=== PATIENT | male | born 1955 | race Caucasian/White ===

== ENCOUNTER 2017-04-11 20:19 | Emergency (ER) | payer OTHER ==
[~2017-04-11] VITALS: Ht 172.7 cm; Wt 121.0 kg
[~2017-04-11 20:19] MED LIST: IBUP800T23 PO; ORPH100T PO; SIMV10 PO; ZOLP10TA3 PO
[2017-04-11 20:26] VITALS: BP 174/89; PULSE 80; RESP 18; TEMP 98.4; O2SAT 99
--- NOTE | 2017-04-11 21:32 | PD ---
HPI Chief Complaint: Psychiatric Symptoms Time Seen by Provider: 21:31 Travel History International Travel<30 days: No Contact w/Intl Traveler<30days: No Traveled to known affect area: No History of Present Illness HPI 61-year-old male presents to the emergency department under Mcguire act for psychiatric evaluation. Patient states that he is getting a divorce after 30+ years and has been having a difficult time dealing with it. He was angry this evening and said "things that he didn't mean." Patient did state that he made suicidal threats did not meet any of this. He states it was "leaking at the moment." Patient denies any psychiatric history. Denies any illegal drug use. Occasional alcohol use. He has no other symptoms to report this time. [facility] Past Medical History Medical History: Denies Significant Hx High Cholesterol: Yes Diminished Hearing: No Past Surgical History Cholecystectomy: Yes Social History Alcohol Use: Yes (OCCU) Tobacco Use: No Substance Use: No Allergies-Medications (Allergen,Severity, Reaction): Coded Allergies: shellfish derived (Unverified Allergy, Unknown, Anaphylaxis, 03/29/17) Reported Meds & Prescriptions Reported Meds & Active Scripts Active Reported Omeprazole 40 Mg Cap 40 Mg PO DAILY Zolpidem (Zolpidem Tartrate) 10 Mg Tab 10 Mg PO HS PRN Review of Systems Except as stated in HPI: all other systems reviewed are Neg Physical Exam Narrative GENERAL: Well-nourished male patient, and no acute distress. SKIN: Focused skin assessment warm/dry. HEAD: Atraumatic. Normocephalic. EYES: Pupils equal and round. No scleral icterus. No injection or drainage. ENT: No nasal bleeding or discharge. Mucous membranes pink and moist. NECK: Trachea midline. No JVD. CARDIOVASCULAR: Regular rate and rhythm. No murmur appreciated. RESPIRATORY: No accessory muscle use. Clear to auscultation. Breath sounds equal bilaterally. GASTROINTESTINAL: Abdomen soft, non-tender, nondistended. Hepatic and splenic margins not palpable. MUSCULOSKELETAL: No obvious deformities. No clubbing. No cyanosis. No edema. NEUROLOGICAL: Awake and alert. No obvious cranial nerve deficits. Motor grossly within normal limits. Normal speech. Data Data Last Documented VS Vital Signs Date Time Temp Pulse Resp B/P (MAP) Pulse Ox O2 Delivery O2 Flow Rate FiO2 04/11/17 20:26 98.4 80 18 174/89 (117) 99 Orders Orders Complete Blood Count With Diff (04/11/17 21:19) Basic Metabolic Panel (Bmp) (04/11/17 21:19) Psych Screen (04/11/17 21:19) Drug Screen, Random Urine (04/11/17 21:19) Alcohol (Ethanol) (04/11/17 21:19) Labs Laboratory Tests Test 04/11/17 20:47 04/11/17 22:05 White Blood Count 6.4 TH/MM3 Red Blood Count 4.87 MIL/MM3 Hemoglobin 14.5 GM/DL Hematocrit 44.1 % Mean Corpuscular Volume 90.5 FL Mean Corpuscular Hemoglobin 29.7 PG Mean Corpuscular Hemoglobin Concent 32.8 % Red Cell Distribution Width 14.0 % Platelet Count 290 TH/MM3 Mean Platelet Volume 7.0 FL Neutrophils (%) (Auto) 61.5 % Lymphocytes (%) (Auto) 26.9 % Monocytes (%) (Auto) 9.4 % Eosinophils (%) (Auto) 1.6 % Basophils (%) (Auto) 0.6 % Neutrophils # (Auto) 3.9 TH/MM3 Lymphocytes # (Auto) 1.7 TH/MM3 Monocytes # (Auto) 0.6 TH/MM3 Eosinophils # (Auto) 0.1 TH/MM3 Basophils # (Auto) 0.0 TH/MM3 CBC Comment DIFF FINAL Differential Comment Blood Urea Nitrogen 9 MG/DL Creatinine 0.73 MG/DL Random Glucose 75 MG/DL Calcium Level 9.0 MG/DL Sodium Level 138 MEQ/L Potassium Level 3.7 MEQ/L Chloride Level 102 MEQ/L Carbon Dioxide Level 24.8 MEQ/L Anion Gap 11 MEQ/L Estimat Glomerular Filtration Rate 110 ML/MIN Ethyl Alcohol Level LESS THAN 3 MG/DL Urine Opiates Screen NEG Urine Barbiturates Screen NEG Urine Amphetamines Screen NEG Urine Benzodiazepines Screen NEG Urine Cocaine Screen NEG Urine Cannabinoids Screen NEG MDM Medical Decision Making Medical Screen Exam Complete: Yes Emergency Medical Condition: Yes Medical Record Reviewed: Yes Differential Diagnosis Mood disorder versus personality disorder versus adjustment reaction disorder Narrative Course 61 year-old male presents to emergency department for evaluation under a Mcguire act. Patient appears well and without distress. Vital signs are stable. Laboratory is without acute concern. Patient is medically cleared to undergo psychiatric screening for further evaluation and disposition. Mental health screening discussed with the patient. Psychiatric screen ordered. Diagnosis Primary Impression: Adjustment reaction Qualified Codes: F43.25 - Adjustment disorder with mixed disturbance of emotions and conduct Condition: Stable Barbara Mccauley Apr 11, 2017 21:32
[2017-04-11 21:52] LABS: AUTOMATED NEUTROPHIL # 3.9 TH/MM3 (1.8-7.7); BASOPHIL % 0.6 % (0.0-2.0); EOSINOPHIL # 0.1 TH/MM3 (0-0.4); EOSINOPHIL % 1.6 % (0.0-4.0); HEMATOCRIT 44.1 % (39.0-51.0); HEMO FLAGS DIFF FINAL; LYMPH % 26.9 % (9.0-44.0); LYMPHOCYTE # 1.7 TH/MM3 (1.0-4.8); MEAN CELL VOLUME 90.5 FL (80.0-100.0); MEAN CORPUSCULAR HEMOGLOBIN 29.7 PG (27.0-34.0); MEAN CORPUSCULAR HGB CONC 32.8 % (32.0-36.0); MONO % 9.4 % (0.0-8.0); NEUT % 61.5 % (16.0-70.0); PLATELET COUNT 290 TH/MM3 (150-450); RED BLOOD COUNT 4.87 MIL/MM3 (4.50-5.90); WHITE BLOOD COUNT 6.4 TH/MM3 (4.0-11.0)
[2017-04-11 22:13] LABS: ANION GAP 11 MEQ/L (5-15); BICARBONATE 24.8 MEQ/L (21.0-32.0); BLOOD UREA NITROGEN 9 MG/DL (7-18); CHLORIDE 102 MEQ/L (98-107); GLOMERULAR FILTRATION RATE 110 ML/MIN (>89); POTASSIUM 3.7 MEQ/L (3.5-5.1); SODIUM (NA) 138 MEQ/L (136-145)
[2017-04-11 22:19] LABS: ALCOHOL LESS THAN 3 MG/DL (0-5)
[2017-04-11] MEDS ORDERED: OMEP40CA2 PO (23:21)
[2017-04-11] MEDS ORDERED: ZOLP10TA3 PO (23:21)
[2017-04-12 06:00] VITALS: BP 159/81; PULSE 72; RESP 18; O2SAT 98
[2017-04-12 08:22] VITALS: BP 146/78; PULSE 74; RESP 18; O2SAT 96
--- NOTE | 2017-04-12 09:46 | PD ---
History of Present Illness Chief Complaint: Psychiatric Symptoms Time Seen by Provider: 09:35 Travel History International Travel<30 Days: No Contact w/Intl Traveler<30days: No Known affected area: No Legal Status Legal Status: Mcguire Act Mcguire Act Signed By: Carlos Irwin History of Present Illness: History of Present Illness HPI 61-year-old male with no previous psychiatric history who presents to the emergency department under Mcguire act for psychiatric evaluation. The BA report alleges that " he left a note for his stating that he was going to harm himself" Patient states that he is getting a divorce after 30+ years and has been having a difficult time dealing with it. He was involved in an argument with his and feeling angry and said "things that he didn't mean." Patient did state that he made suicidal threats did not meet any of this. EMR reviewed. No previous contact with [facility] psychiatry dept.. Toxicology is negative Patient seen. Alert, oriented, calm, cooperative. Speech is clear, logical and goal directed. There is no indication of any psychosis, no antonio. No significant depression or anxiety. States " It was an argument in the heat of the moment". I'm going to my uncle's house in [place] for a week" I would never hurt myself or anyone else". He denies any significant symptom of depression. Telephone call to patient's , Yvonne at [phone] with his permission. She is aware of his plans to go with his uncle for a week. She no concerns if he is discharged. Telephone call to uncle at [phone]. He has no concerns and will pick him up today. PFSH Past Medical History Medical History: Denies Significant Hx High Cholesterol: Yes Diminished Hearing: No Past Surgical History Cholecystectomy: Yes Psychiatric History Psychiatric History Hx Psychiatric Treatment: Denies any History of Inpatient Treatment: No Guns or firearms in home: Yes (Weapons took all weapons from the home.) Social History Born In [facility]. Moved to [place] 15 years ago. x 30 years. 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 No legal hx Hx Alcohol Use: Yes (OCCU) Hx Tobacco Use: No Hx Substance Use: No Substance Use Type: Alcohol (social use of alcohol) Hx of Substance Use Treatment: No Family Psychiatric History Negative Allergies-Medications (Allergen,Severity, Reaction): Coded Allergies: shellfish derived (Verified Allergy, Unknown, Anaphylaxis, 04/12/17) Reported Meds & Prescriptions Reported Meds & Active Scripts Active Reported Omeprazole 40 Mg Cap 40 Mg PO DAILY Zolpidem (Zolpidem Tartrate) 10 Mg Tab 10 Mg PO HS PRN Review of Systems Except as stated in HPI: all other systems reviewed are Neg Exam Alert: Yes [place]: Person (ox4) Mood: Calm Affect: Appropriate Speech: Clear, Logical Eye Contact: Normal Memory Intact: Comment (No impairmetn) Hallucinations: Other (Negative) Delusions: No Suicidal: Ideation (Denies any) Homicidal: Ideation (Denies) Insight/Judgement Fair. Not impaired. MDM Medical Decision Making Medical Record Reviewed: Yes Assessment/Plan 61-year-old male with no previous psychiatric history who presents to the emergency department under Mcguire act for psychiatric evaluation. The BA report alleges that " he left a note for his stating that he was going to harm himself" He did not make any attempt at harming himself and has no previous psychiatric history or previous suicide d attempts. His statements and not were made in context of an argument and while the couple was discussing possible divorce. He denies any suicidal ideation, intent or plan. No evidence of any unstable mental illness as defined under the Mcguire act. Weighing the relevant factors and based on the available evidence , the patient does not currently meet the Mcguire act criteria. Psychoeducation provided. Support and recommend outpatient counseling. Clear from psychiatry for discharge from ed. BA lifted Orders Orders Complete Blood Count With Diff (04/11/17 21:19) Basic Metabolic Panel (Bmp) (04/11/17 21:19) Psych Screen (04/11/17 21:19) Drug Screen, Random Urine (04/11/17 21:19) Alcohol (Ethanol) (04/11/17 21:19) Diet Regular Basic (04/12/17 Breakfast) Results Vital Signs Date Time Temp Pulse Resp B/P (MAP) Pulse Ox O2 Delivery O2 Flow Rate FiO2 04/12/17 08:22 74 18 146/78 (100) 96 Room Air 04/12/17 06:00 72 18 159/81 (107) 98 Room Air 04/11/17 20:26 98.4 80 18 174/89 (117) 99 Laboratory Tests Test 04/11/17 20:47 04/11/17 22:05 White Blood Count 6.4 Red Blood Count 4.87 Hemoglobin 14.5 Hematocrit 44.1 Mean Corpuscular Volume 90.5 Mean Corpuscular Hemoglobin 29.7 Mean Corpuscular Hemoglobin Concent 32.8 Red Cell Distribution Width 14.0 Platelet Count 290 Mean Platelet Volume 7.0 Neutrophils (%) (Auto) 61.5 Lymphocytes (%) (Auto) 26.9 Monocytes (%) (Auto) 9.4 Eosinophils (%) (Auto) 1.6 Basophils (%) (Auto) 0.6 Neutrophils # (Auto) 3.9 Lymphocytes # (Auto) 1.7 Monocytes # (Auto) 0.6 Eosinophils # (Auto) 0.1 Basophils # (Auto) 0.0 CBC Comment DIFF FINAL Differential Comment Blood Urea Nitrogen 9 Creatinine 0.73 Random Glucose 75 Calcium Level 9.0 Sodium Level 138 Potassium Level 3.7 Chloride Level 102 Carbon Dioxide Level 24.8 Anion Gap 11 Estimat Glomerular Filtration Rate 110 Ethyl Alcohol Level LESS THAN 3 Urine Opiates Screen NEG Urine Barbiturates Screen NEG Urine Amphetamines Screen NEG Urine Benzodiazepines Screen NEG Urine Cocaine Screen NEG Urine Cannabinoids Screen NEG Diagnosis Primary Impression: Adjustment reaction Psychiatrically Cleared: Yes Med/ Other Pt Specific Info: No Meds Exist/No RX given Disposition: 01 DISCHARGE HOME Condition: Stable Problem Qualifiers Primary Impression: Adjustment reaction Qualified Codes: F43.21 - Adjustment disorder with depressed mood Thea Cuellar DIRECTOR OF VALUATION Apr 12, 2017 09:46
--- NOTE | 2017-04-12 10:08 | PD ---
Physical Exam Date Seen by Provider: Apr 12, 2017 Time Seen by Provider: 10:08 Narrative 61-year-old male came to the emergency room as a Mcguire act after having a fight with his . He was waiting to see psychBrett Sidhu the nurse practitioner from psych has seen him and came and spoke with me. They're lifting his Mcguire act and they will be discharging him home. Data Data Last Documented VS Vital Signs Date Time Temp Pulse Resp B/P (MAP) Pulse Ox O2 Delivery O2 Flow Rate FiO2 04/12/17 08:22 74 18 146/78 (100) 96 Room Air 04/11/17 20:26 98.4 Orders Orders Complete Blood Count With Diff (04/11/17 21:19) Basic Metabolic Panel (Bmp) (04/11/17 21:19) Psych Screen (04/11/17 21:19) Drug Screen, Random Urine (04/11/17 21:19) Alcohol (Ethanol) (04/11/17 21:19) Diet Regular Basic (04/12/17 Breakfast) Labs Laboratory Tests Test 04/11/17 20:47 04/11/17 22:05 White Blood Count 6.4 TH/MM3 Red Blood Count 4.87 MIL/MM3 Hemoglobin 14.5 GM/DL Hematocrit 44.1 % Mean Corpuscular Volume 90.5 FL Mean Corpuscular Hemoglobin 29.7 PG Mean Corpuscular Hemoglobin Concent 32.8 % Red Cell Distribution Width 14.0 % Platelet Count 290 TH/MM3 Mean Platelet Volume 7.0 FL Neutrophils (%) (Auto) 61.5 % Lymphocytes (%) (Auto) 26.9 % Monocytes (%) (Auto) 9.4 % Eosinophils (%) (Auto) 1.6 % Basophils (%) (Auto) 0.6 % Neutrophils # (Auto) 3.9 TH/MM3 Lymphocytes # (Auto) 1.7 TH/MM3 Monocytes # (Auto) 0.6 TH/MM3 Eosinophils # (Auto) 0.1 TH/MM3 Basophils # (Auto) 0.0 TH/MM3 CBC Comment DIFF FINAL Differential Comment Blood Urea Nitrogen 9 MG/DL Creatinine 0.73 MG/DL Random Glucose 75 MG/DL Calcium Level 9.0 MG/DL Sodium Level 138 MEQ/L Potassium Level 3.7 MEQ/L Chloride Level 102 MEQ/L Carbon Dioxide Level 24.8 MEQ/L Anion Gap 11 MEQ/L Estimat Glomerular Filtration Rate 110 ML/MIN Ethyl Alcohol Level LESS THAN 3 MG/DL Urine Opiates Screen NEG Urine Barbiturates Screen NEG Urine Amphetamines Screen NEG Urine Benzodiazepines Screen NEG Urine Cocaine Screen NEG Urine Cannabinoids Screen NEG MDM Supervised Visit with EILEEN: No Diagnosis Primary Impression: Adjustment reaction Qualified Codes: F43.21 - Adjustment disorder with depressed mood Referrals: Primary Care Physician Disposition: 01 DISCHARGE HOME Condition: Stable Caitlyn Medrano MD Apr 12, 2017 10:08
== END 2017-04-12 10:27 | disposition home or self-care (01) ==
LOC: NEDAMB 20:19 → NEPD 04-12 10:27
DX: F43.25 Adjustment disorder with mixed disturbance of emotions and conduct (principal); F43.21 Adjustment disorder with depressed mood; E78.00 Pure hypercholesterolemia, unspecified; Z79.899 Other long term (current) drug therapy
CPT/HCPCS: 80048; 80307; 85025; 99284